=== PATIENT | male | born 1970 | race Caucasian/White ===

== ENCOUNTER → 2016-10-08 | Day surgery (SDC) | payer BC ==
[~2016-10-08] MED LIST: LEVO-T100 MCG PO
--- NOTE | ~2016-10-08 | OR ---
Unit #: [id number] #: [id number] Patient: ELKIN DEGROOT [id number] [address] [id number] O MR#: [id number] NAME: ELKIN DEGROOT ROOM: Date of Procedure: 10/08/2016 Admission Date: 10/08/2016 Surgeon: Tyron Santos Jr., M.D. : 1970 Attending Physician: Tyron Santos Jr., M.D. Primary Care Physician: Matty Jon M.D. OPERATIVE REPORT INDICATIONS FOR PROCEDURE The patient is a 45-year-old white male, who recently presented to the office several days ago complaining of nodular mass of left elbow. This causes some pain at times especially when he bumps this. It has slowly enlarged in size. He is brought in this time for excision of this. PREOPERATIVE DIAGNOSIS Mass of the left elbow, etiology? POSTOPERATIVE DIAGNOSIS Mass of the left elbow, etiology? noting approximately 1 cm mass. ANESTHESIA 0.5% Xylocaine with epinephrine locally. PROCEDURE PERFORMED Excision of mass of the left elbow. DESCRIPTION OF PROCEDURE The patient was positioned in the supine position with his arm stretched over his chest and prepped and draped in routine fashion for removal of the mass described above. After he was prepped and draped, he was anesthetized locally with 0.5% Xylocaine with epinephrine. An elliptical incision was made around the mass with being totally excised from the surrounding tissue. After it was completely removed, it was sent to Pathology. Hemostasis was achieved with Bovie cautery and the deeper subcutaneous tissue was then approximated with interrupted 3-0 Vicryl sutures. Skin edges were approximated with continuous 5-0 nylon suture. Ointment and sterile dressing was applied externally. Estimated blood loss was minimal. No drains were used. No complications. The patient was discharged in satisfactory condition. Dictated by... Tyron Santos Jr., M.D. JMB/shanique TD: 10/08/2016 15:50 JOB #: [id number] CC: Matty Jon M.D. Unit #: [id number] #: [id number] Patient: ELKIN DEGROOT OPERATIVE REPORT Page 1 of 1 X Tyron Santos MD PROCEDURE OPERATIVE NOTE
== END | disposition home or self-care (01) ==
LOC: CSUR 12:35
DX: L72.0 Epidermal cyst (principal); L08.9 Local infection of the skin and subcutaneous tissue, unspecified; L92.3 Foreign body granuloma of the skin and subcutaneous tissue; K21.9 Gastro-esophageal reflux disease without esophagitis; E89.0 Postprocedural hypothyroidism; F17.210 Nicotine dependence, cigarettes, uncomplicated
CPT/HCPCS: 88304